=== PATIENT | female | born 1995 | race Two or more races ===

== ENCOUNTER 2018-05-02 09:29 | Emergency (ER) | payer OTHER ==
[~2018-05-02] VITALS: Ht 66 cm; Wt 59.4 kg
[~2018-05-02 09:29] MED LIST: KETO10TA2 PO; NORFLEX100MG PO; ZANTAC150 MG PO; ZITHROMAX500 MG PO
== END 2018-05-02 12:55 | disposition home or self-care (01) ==
LOC: ER 09:29
DX: M62.838 Other muscle spasm (principal)